=== PATIENT | female | born 1940 | race African-American/Black ===

== ENCOUNTER 2023-01-22 10:55 | Inpatient (IN) | payer MEDICARE, MEDICAID ==
[~2023-01-22] VITALS: Ht 157.5 cm; Wt 58.6 kg
[2023-01-22 12:29] LABS: Basophils # (auto) 0 10 ^3/uL (0-0.2); Eosinophils # (auto) 0.1 10 ^3/uL (0-0.8); Hemoglobin 10.5 g/dL (12.2-16.2); Lymphocytes % (auto) 6.1 % (10.0-50.0); Nucleated Red Blood Cells % 0.1 %
[2023-01-22 12:31] LABS: Basophils % (auto) 0.3 % (0.0-2.0); Hematocrit 33.8 % (36.0-46.0); Lymphocytes # (auto) 0.7 10 ^3/uL (0.4-5.4); Mean Corpuscular Hemoglobin 23.7 pg (28.0-32.0); Mean Corpuscular Hgb Conc. 31.2 g/dL (32.0-36.0); Monocytes # (auto) 0.8 10 ^3/uL (0-1.3); Monocytes % (auto) 7.2 % (0.0-12.0); Neutrophils # (auto) 9.2 10 ^3/uL (1.6-8.6); Neutrophils % (auto) 85.4 % (37.0-80.0); Red Blood Cells 4.44 10^6/uL (4.0-5.20); White Blood Cell 10.8 10^3/uL (4.4-10.8)
[2023-01-22 12:33] LABS: Red Cell Distribution Width 21.9 % (11.8-14.3)
[2023-01-22 12:35] LABS: Albumin 2.4 g/dL (3.4-5.0); Calcium 8.5 mg/dL (8.5-10.1); Potassium 3.9 mmol/L (3.5-5.1)
[2023-01-22 12:38] LABS: BUN/Creatinine Ratio 14.7 (10.0-20.0); Bilirubin, Total 0.6 mg/dL (0.2-1.0); INR 1.04 (0.9-1.15); Total Protein 5.8 g/dL (6.4-8.2)
[2023-01-22] MEDS ORDERED: ALBUTEROL SULF 2.5 MG/0.5ML(0.5%) NEB SOLN NEB ONE (15:15)
[2023-01-22] MEDS ORDERED: ASPirin 325 MG TAB PO ONE (15:15)
[2023-01-22] MEDS ORDERED: IPRATROPIUM BROM 0.5 MG/2.5ML INH SOL NEB ONE (15:15)
[2023-01-22] MEDS ORDERED: DexAMETHasone SOD PHOS 10MG/1ML VIAL INJ IV ONE (15:15)
[2023-01-22] MEDS: MAGNESIUM SULFATE 1GM/100ML 100 ML IV SCH ×2 (15:38→23:59)
[2023-01-22] MEDS ORDERED: VANCOMYCIN 1GM/250ML 250 ML IV ONE (16:00)
[2023-01-22] MEDS ORDERED: CEFEPIME 1GM/ 50ML 50 ML IV ONE (16:00)
[2023-01-22] MEDS ORDERED: SODIUM CHLORIDE 0.9% 250 ML IV ONE (16:00)
[2023-01-22] MEDS ORDERED: ACETAMINOPHEN 325 MG TAB PO PRN (16:15)
[2023-01-22] MEDS ORDERED: ALBUTEROL SULF 2.5 MG/0.5ML(0.5%) NEB SOLN NEB PRN (16:15)
[2023-01-22] MEDS ORDERED: NITROGLYCERIN 0.4 MG SL TAB SL PRN (16:15)
[2023-01-22] MEDS ORDERED: FUROSEMIDE 20 MG/2 ML VIAL IV ONE (16:15)
[2023-01-22] MEDS ORDERED: MORPHINE SULFATE INJ 2 MG/ml SYRG IV PRN (16:15)
[2023-01-22 16:39] LABS: Urine Bacteria NONE SEEN /hpf (None Seen); Urine Blood Negative /uL (Negative); Urine Mucus FEW (None Seen); Urine WBC 1 /hpf (0 - 5)
[2023-01-22 16:57] LABS: Urine Specific Gravity > 1.050 (1.001-1.035)
[2023-01-22] MEDS ORDERED: VANCOMYCIN PER PHARMACY 0 MG IV SCH (17:00)
[2023-01-22 17:14] VITALS: BP 136/59
[2023-01-22] MEDS ORDERED: cefTRIAXone 1GM/50ML D5W 50 ML IV SCH (18:00)
[2023-01-22] MEDS: ALBUTEROL SULF 2.5 MG/0.5ML(0.5%) NEB SOLN NEB SCH ×2 (18:21→22:17)
[2023-01-22] MEDS: IPRATROPIUM BROM 0.5 MG/2.5ML INH SOL NEB SCH ×2 (18:21→22:17)
[2023-01-22] MEDS: AZITHROMYCIN 500MG/ 250ML 250 ML IV SCH (21:02)
[2023-01-22] MEDS ORDERED: MAGNESIUM SULFATE 1GM/100ML 100 ML IV ONE (23:44)
[2023-01-22] MEDS: methylPREDNISolone SOD SUCC 125 MG/2 ML VL IV SCH (23:59)
[2023-01-23] MEDS: IPRATROPIUM BROM 0.5 MG/2.5ML INH SOL NEB SCH ×6 (02:15→22:01)
[2023-01-23] MEDS: ALBUTEROL SULF 2.5 MG/0.5ML(0.5%) NEB SOLN NEB SCH ×6 (02:15→22:01)
[2023-01-23 05:42] LABS: Basophils # (auto) 0 10 ^3/uL (0-0.2); Basophils % (auto) 0.2 % (0.0-2.0); Eosinophils # (auto) 0 10 ^3/uL (0-0.8); Lymphocytes # (auto) 0.6 10 ^3/uL (0.4-5.4); Monocytes # (auto) 0.1 10 ^3/uL (0-1.3); Nucleated Red Blood Cells % 0.2 %
[2023-01-23 05:46] LABS: Hematocrit 32.3 % (36.0-46.0); Mean Corpuscular Hemoglobin 23.6 pg (28.0-32.0); Mean Corpuscular Hgb Conc. 31.1 g/dL (32.0-36.0); Mean Corpuscular Volume 76.1 fL (80.0-100.0); Monocytes % (auto) 1.5 % (0.0-12.0); Neutrophils # (auto) 7.3 10 ^3/uL (1.6-8.6); Neutrophils % (auto) 91.3 % (37.0-80.0); Red Blood Cells 4.24 10^6/uL (4.0-5.20); Red Cell Distribution Width 21.2 % (11.8-14.3)
[2023-01-23 05:52] LABS: Albumin 2.1 g/dL (3.4-5.0); BUN/Creatinine Ratio 18.1 (10.0-20.0); Calcium 8.5 mg/dL (8.5-10.1)
[2023-01-23 05:55] LABS: Bilirubin, Total 0.3 mg/dL (0.2-1.0); Total Protein 6.3 g/dL (6.4-8.2)
[2023-01-23] MEDS: ENOXAPARIN SOD 40 MG/0.4 ML SYRINGE SC SCH (10:41)
[2023-01-23] MEDS: methylPREDNISolone SOD SUCC 125 MG/2 ML VL IV SCH ×2 (10:41→23:06)
[2023-01-23] MEDS: AZITHROMYCIN 500MG/ 250ML 250 ML IV SCH (10:41)
[2023-01-23] MEDS: ASPirin 81 mg TAB PO SCH (10:41)
[2023-01-23] MEDS: FUROSEMIDE 20 MG/2 ML VIAL IV SCH (10:42)
[2023-01-23] MEDS: VANCOMYCIN 750mg/250ml 250 ML IV SCH (18:21)
[2023-01-24 00:17] VITALS: BP 135/53
[2023-01-24] MEDS: ALBUTEROL SULF 2.5 MG/0.5ML(0.5%) NEB SOLN NEB SCH ×6 (01:50→22:20)
[2023-01-24] MEDS: IPRATROPIUM BROM 0.5 MG/2.5ML INH SOL NEB SCH ×6 (01:50→22:20)
[2023-01-24 05:15] VITALS: BP 129/61
[2023-01-24 07:57] LABS: Basophils # (auto) 0 10 ^3/uL (0-0.2); Eosinophils # (auto) 0 10 ^3/uL (0-0.8); Monocytes # (auto) 0.3 10 ^3/uL (0-1.3); Red Blood Cells 4.05 10^6/uL (4.0-5.20); White Blood Cell 13.8 10^3/uL (4.4-10.8)
[2023-01-24 08:01] LABS: Basophils % (auto) 0.2 % (0.0-2.0); Hematocrit 29.9 % (36.0-46.0); Hemoglobin 9.8 g/dL (12.2-16.2); Lymphocytes # (auto) 0.7 10 ^3/uL (0.4-5.4); Lymphocytes % (auto) 4.8 % (10.0-50.0); Mean Corpuscular Hemoglobin 24.1 pg (28.0-32.0); Mean Corpuscular Hgb Conc. 32.6 g/dL (32.0-36.0); Mean Corpuscular Volume 73.8 fL (80.0-100.0); Neutrophils # (auto) 12.8 10 ^3/uL (1.6-8.6); Nucleated Red Blood Cells % 0.1 %
[2023-01-24 08:11] LABS: Red Cell Distribution Width 21.1 % (11.8-14.3)
[2023-01-24 09:00] VITALS: BP 122/74
[2023-01-24 09:08] LABS: BUN/Creatinine Ratio 35.2 (10.0-20.0); Calcium 8.8 mg/dL (8.5-10.1)
[2023-01-24 09:18] LABS: Potassium 3.2 mmol/L (3.5-5.1)
[2023-01-24] MEDS: AZITHROMYCIN 500MG/ 250ML 250 ML IV SCH (10:31)
[2023-01-24] MEDS: methylPREDNISolone SOD SUCC 125 MG/2 ML VL IV SCH ×2 (10:33→22:02)
[2023-01-24] MEDS: FUROSEMIDE 20 MG/2 ML VIAL IV SCH (10:33)
[2023-01-24] MEDS: ENOXAPARIN SOD 40 MG/0.4 ML SYRINGE SC SCH (10:34)
[2023-01-24] MEDS: ASPirin 81 mg TAB PO SCH (10:35)
[2023-01-24 13:00] VITALS: BP 115/61
[2023-01-24 17:00] VITALS: BP 131/60
[2023-01-24 22:00] VITALS: BP 140/55
[2023-01-24] MEDS: VANCOMYCIN 750mg/250ml 250 ML IV SCH (22:03)
[2023-01-25] MEDS: ALBUTEROL SULF 2.5 MG/0.5ML(0.5%) NEB SOLN NEB SCH ×4 (02:29→13:29)
[2023-01-25] MEDS: IPRATROPIUM BROM 0.5 MG/2.5ML INH SOL NEB SCH ×4 (02:29→13:29)
[2023-01-25 05:00] VITALS: BP 121/45
[2023-01-25 06:56] LABS: Basophils # (auto) 0 10 ^3/uL (0-0.2); Eosinophils # (auto) 0 10 ^3/uL (0-0.8); Hemoglobin 10.4 g/dL (12.2-16.2); Monocytes # (auto) 0.4 10 ^3/uL (0-1.3)
[2023-01-25 06:58] LABS: Basophils % (auto) 0.3 % (0.0-2.0); Hematocrit 33.2 % (36.0-46.0); Lymphocytes # (auto) 0.7 10 ^3/uL (0.4-5.4); Lymphocytes % (auto) 5.4 % (10.0-50.0); Mean Corpuscular Hemoglobin 23.1 pg (28.0-32.0); Mean Corpuscular Hgb Conc. 31.2 g/dL (32.0-36.0); Mean Corpuscular Volume 74.1 fL (80.0-100.0); Monocytes % (auto) 2.8 % (0.0-12.0); Neutrophils # (auto) 11.4 10 ^3/uL (1.6-8.6); Neutrophils % (auto) 91.5 % (37.0-80.0); Nucleated Red Blood Cells % 0.1 %; Red Blood Cells 4.49 10^6/uL (4.0-5.20); White Blood Cell 12.4 10^3/uL (4.4-10.8)
[2023-01-25 07:07] LABS: Red Cell Distribution Width 21.3 % (11.8-14.3)
[2023-01-25 07:28] LABS: BUN/Creatinine Ratio 35.4 (10.0-20.0); Calcium 9.1 mg/dL (8.5-10.1)
[2023-01-25 09:00] VITALS: BP 130/80
[2023-01-25] MEDS: AZITHROMYCIN 500MG/ 250ML 250 ML IV SCH (10:17)
[2023-01-25] MEDS: FUROSEMIDE 20 MG/2 ML VIAL IV SCH (10:18)
[2023-01-25] MEDS: ENOXAPARIN SOD 40 MG/0.4 ML SYRINGE SC SCH (10:18)
[2023-01-25] MEDS: ASPirin 81 mg TAB PO SCH (10:19)
[2023-01-25] MEDS: methylPREDNISolone SOD SUCC 125 MG/2 ML VL IV SCH (10:19)
[2023-01-25] MEDS ORDERED: ASPI-325 PO (12:12)
[2023-01-25] MEDS ORDERED: FURO1TAB33 PO (12:12)
[2023-01-25] MEDS ORDERED: LEVO750T64 PO (12:12)
[2023-01-25] MEDS ORDERED: PRED20TA2 PO (12:12)
[2023-01-25 13:00] VITALS: BP 136/64
[2023-01-25] MEDS ORDERED: POTASSIUM EFFERVESENT TAB 25 MEQ PO ONE (14:00)
== END 2023-01-25 17:45 | disposition home or self-care (01) | DRG 193 ==
LOC: ER 10:55 → EDBD 10:55 → TELE 16:18 → TELE-WESTW 01-23 22:02
PROVIDERS: ADMIT Nurse Practitioner Family; ATTEND Internal Medicine Pulmonary Disease
DX: J18.9 Pneumonia, unspecified organism (principal); J96.21 Acute and chronic respiratory failure with hypoxia; E46 Unspecified protein-calorie malnutrition; I50.9 Heart failure, unspecified; J43.9 Emphysema, unspecified; Z20.822 Contact with and (suspected) exposure to COVID-19; Z88.1 Allergy status to other antibiotic agents; Z85.3 Personal history of malignant neoplasm of breast; Z90.12 Acquired absence of left breast and nipple; Z88.2 Allergy status to sulfonamides; Z88.8 Allergy status to other drugs, medicaments and biological substances; Z68.23 Body mass index [BMI] 23.0-23.9, adult
CPT/HCPCS: 36415; 71045; 71275; 80048; 80053; 81001; 83605; 83880; 84484; 85025; 85610; 85730; 87040; 87081; 87086; 87426; 93005; 93306; 94640; 94644; 96365; 96375; 99291; G0378; J1100

== ENCOUNTER 2023-11-05 17:11 | Inpatient (IN) | payer OTHER, MEDICAID ==
[~2023-11-05] VITALS: Ht 165.1 cm; Wt 70.2 kg
[~2023-11-05 17:11] MED LIST: ASPI-325 PO; FURO1TAB33 PO; LEVO750T40 PO; PRED20TA2 PO
[2023-11-05] MEDS ORDERED: methylPREDNISolone SOD SUCC 125 MG/2 ML VL IV ONE (18:00)
[2023-11-05] MEDS ORDERED: IPRATROPIUM BROM 0.5 MG/2.5ML INH SOL NEB ONE (18:00)
[2023-11-05] MEDS ORDERED: ALBUTEROL SULF 2.5 MG/0.5ML(0.5%) NEB SOLN NEB ONE (18:00)
[2023-11-05 18:48] LABS: Basophils % (auto) 0.3 % (0.0-2.0); Eosinophils # (auto) 0.2 10 ^3/uL (0-0.8); Lymphocytes # (auto) 2.7 10 ^3/uL (0.4-5.4); Mean Corpuscular Hgb Conc. 30.6 g/dL (32.0-36.0); Monocytes # (auto) 1.8 10 ^3/uL (0-1.3)
[2023-11-05 18:49] LABS: Basophils # (auto) 0.1 10 ^3/uL (0-0.2); Eosinophils % (auto) 0.8 % (0.0-7.0); Hematocrit 34.7 % (36.0-46.0); Hemoglobin 10.6 g/dL (12.2-16.2); Mean Corpuscular Hemoglobin 23.6 pg (28.0-32.0); Mean Corpuscular Volume 77.1 fL (80.0-100.0); Monocytes % (auto) 9.3 % (0.0-12.0); Neutrophils # (auto) 14.5 10 ^3/uL (1.6-8.6); Neutrophils % (auto) 75.6 % (37.0-80.0); Nucleated Red Blood Cells % 0.1 %; Red Blood Cells 4.51 10^6/uL (4.0-5.20); White Blood Cell 19.2 10^3/uL (4.4-10.8)
[2023-11-05 18:53] LABS: Red Cell Distribution Width 21.9 % (11.8-14.3)
[2023-11-05 19:11] LABS: Alanine Aminotransferase 27 U/L (7-40); Albumin 4.3 g/dL (3.2-4.8); Alkaline Phosphatase 104 U/L (46-116); Anion Gap 7 (5-15); Aspartate Aminotransferase 20 U/L (13-40); BUN/Creatinine Ratio 18.5 (10.0-20.0); Blood Urea Nitrogen 15 mg/dL (9-23); Calcium 9.3 mg/dL (8.5-10.1); Carbon Dioxide 30 mmol/L (20-30); Chloride 106 mmol/L (98-107); Glucose 89 mg/dL (74-106); Potassium 3.3 mmol/L (3.5-5.1); Sodium 143 mmol/L (136-145)
[2023-11-05 19:12] LABS: Bilirubin, Total 0.3 mg/dL (0.2-1.0); Total Protein 6.5 g/dL (5.7-8.2)
[2023-11-05] MEDS ORDERED: FUROSEMIDE 40 MG/4 ML VIAL IV ONE (19:45)
[2023-11-05] MEDS ORDERED: cefTRIAXone 1GM/50ML D5W 50 ML IV ONE (19:45)
[2023-11-05] MEDS ORDERED: ASPirin 325 MG TAB PO ONE (20:00)
[2023-11-05] MEDS ORDERED: AZITHROMYCIN 500MG/ 250ML 250 ML IV ONE ×2 (20:45→22:30)
[2023-11-05] MEDS ORDERED: POTASSIUM CHL 20 Meq TABLET PO ONE (20:45)
[2023-11-05] MEDS ORDERED: NITROGLYCERIN 0.4 MG SL TAB SL PRN (20:45)
[2023-11-05] MEDS ORDERED: MORPHINE SULFATE INJ 2 MG/ml SYRG IV PRN (20:45)
[2023-11-05 21:06] VITALS: BP 166/78; PULSE 75; RESP 20; TEMP 99.2; O2SAT 96
[2023-11-05 21:49] LABS: Urine Epithelial Cast None Seen /hpf (<5)
[2023-11-05 21:56] LABS: Urine Bacteria FEW /hpf (None Seen); Urine Blood Negative /uL (Negative); Urine Clarity HAZY (Clear); Urine Color Yellow (Yellow); Urine Mucus FEW (None Seen); Urine Protein, UAD 1+ (Negative); Urine Specific Gravity 1.019 (1.001-1.035); Urine Urobilinogen Normal (Negative); Urine WBC 7 /hpf (0 - 5)
[2023-11-05] MEDS: ATORVASTATIN 20 MG TAB PO SCH (22:11)
[2023-11-05] MEDS: GABAPENTIN 300 MG CAP PO SCH (22:11)
[2023-11-05] MEDS: DOXYCYCLINE 100MG/250ML 250 ML IV SCH (23:52)
[2023-11-05 23:57] VITALS: PULSE 83; RESP 18; O2SAT 95
[2023-11-05] MEDS: ALBUTEROL SULF 2.5 MG/0.5ML(0.5%) NEB SOLN NEB PRN (23:57)
[2023-11-05] MEDS: IPRATROPIUM BROM 0.5 MG/2.5ML INH SOL NEB PRN (23:57)
[2023-11-06] VITALS (11 sets, daily range): BP systolic 118–173; BP diastolic 59–83; PULSE 73–90; RESP 16–22; TEMP 98–99.1; O2SAT 93–99
[2023-11-06 01:52] LABS: COVID19 ANTIGEN SOFIA FIA NEGATIVE (NEGATIVE); Rapid Influenza A Negative (Negative); Rapid Influenza B Negative (Negative)
[2023-11-06 04:56] LABS: Basophils # (auto) 0 10 ^3/uL (0-0.2); Eosinophils # (auto) 0 10 ^3/uL (0-0.8); Lymphocytes # (auto) 0.9 10 ^3/uL (0.4-5.4); Mean Corpuscular Volume 77.5 fL (80.0-100.0)
[2023-11-06 04:59] LABS: Basophils % (auto) 0.2 % (0.0-2.0); Eosinophils % (auto) 0.1 % (0.0-7.0); Hematocrit 34.3 % (36.0-46.0); Hemoglobin 10.5 g/dL (12.2-16.2); Mean Corpuscular Hemoglobin 23.8 pg (28.0-32.0); Mean Corpuscular Hgb Conc. 30.7 g/dL (32.0-36.0); Monocytes # (auto) 0.3 10 ^3/uL (0-1.3); Monocytes % (auto) 1.4 % (0.0-12.0); Neutrophils # (auto) 16.8 10 ^3/uL (1.6-8.6); Neutrophils % (auto) 93.3 % (37.0-80.0); Red Blood Cells 4.43 10^6/uL (4.0-5.20)
[2023-11-06 05:02] LABS: Calcium 8.7 mg/dL (8.7-10.4); Chloride 104 mmol/L (98-107); Potassium 3.9 mmol/L (3.5-5.1); Sodium 140 mmol/L (136-145)
[2023-11-06 05:03] LABS: Anion Gap 10 (5-15); Carbon Dioxide 26 mmol/L (20-30)
[2023-11-06 05:06] LABS: Red Cell Distribution Width 21.4 % (11.8-14.3)
[2023-11-06 05:08] LABS: BUN/Creatinine Ratio 13.3 (10.0-20.0); Blood Urea Nitrogen 13 mg/dL (9-23); Glucose 256 mg/dL (74-106)
[2023-11-06] MEDS: LEVOTHYROXINE SODIUM 112 MCG TAB PO SCH (06:58)
[2023-11-06] MEDS ORDERED: AZITHROMYCIN 500MG/ 250ML 250 ML IV SCH ×2 (10:00)
[2023-11-06] MEDS: ASPirin 81 mg TAB PO SCH (10:46)
[2023-11-06] MEDS: dilTIAZem 120MG ER CAP PO SCH (10:47)
[2023-11-06] MEDS: GABAPENTIN 300 MG CAP PO SCH ×2 (10:47→21:19)
[2023-11-06] MEDS: methylPREDNISolone SOD SUCC 40 MG/ML VL IV SCH ×2 (10:47→21:18)
[2023-11-06] MEDS: FUROSEMIDE 40 MG TAB PO SCH (10:47)
[2023-11-06] MEDS: DOXYCYCLINE 100MG/250ML 250 ML IV SCH ×2 (10:48→23:00)
[2023-11-06] MEDS: ENOXAPARIN SOD 40 MG/0.4 ML SYRINGE SC SCH (10:48)
[2023-11-06] MEDS: ACETAMINOPHEN 325 MG TAB PO PRN ×2 (13:57→21:18)
[2023-11-06] MEDS: ALBUTEROL SULF 2.5 MG/0.5ML(0.5%) NEB SOLN NEB PRN ×2 (16:50→22:11)
[2023-11-06] MEDS: IPRATROPIUM BROM 0.5 MG/2.5ML INH SOL NEB PRN ×2 (16:50→22:11)
[2023-11-06] MEDS: ATORVASTATIN 20 MG TAB PO SCH (21:19)
[2023-11-06] MEDS: TEMAZEPAM 15 MG CAP PO PRN (22:58)
[2023-11-07] VITALS (12 sets, daily range): BP systolic 118–182; BP diastolic 55–76; PULSE 67–86; RESP 16–20; TEMP 97.7–98.5; O2SAT 90–99
[2023-11-07] MEDS: LEVOTHYROXINE SODIUM 112 MCG TAB PO SCH (06:05)
[2023-11-07] MEDS: ASPirin 81 mg TAB PO SCH (09:33)
[2023-11-07] MEDS: GABAPENTIN 300 MG CAP PO SCH ×2 (09:33→21:38)
[2023-11-07] MEDS: methylPREDNISolone SOD SUCC 40 MG/ML VL IV SCH ×2 (09:33→21:40)
[2023-11-07] MEDS: FUROSEMIDE 40 MG TAB PO SCH (09:34)
[2023-11-07] MEDS: ENOXAPARIN SOD 40 MG/0.4 ML SYRINGE SC SCH (09:34)
[2023-11-07] MEDS: dilTIAZem 120MG ER CAP PO SCH (09:35)
[2023-11-07] MEDS: DOXYCYCLINE 100MG/250ML 250 ML IV SCH ×2 (10:30→21:38)
[2023-11-07 11:14] LABS: Base Excess 1.6 mmol/L (-2.0-2.0)
[2023-11-07 14:45] LABS: Basophils # (auto) 0 10 ^3/uL (0-0.2); Eosinophils # (auto) 0 10 ^3/uL (0-0.8); Hemoglobin 10.2 g/dL (12.2-16.2); Monocytes # (auto) 0.7 10 ^3/uL (0-1.3); Monocytes % (auto) 3.5 % (0.0-12.0)
[2023-11-07 14:46] LABS: Basophils % (auto) 0.1 % (0.0-2.0); Hematocrit 34.1 % (36.0-46.0); Lymphocytes # (auto) 0.7 10 ^3/uL (0.4-5.4); Lymphocytes % (auto) 3.4 % (10.0-50.0); Mean Corpuscular Hemoglobin 23.7 pg (28.0-32.0); Mean Corpuscular Volume 79.1 fL (80.0-100.0); Neutrophils # (auto) 18.6 10 ^3/uL (1.6-8.6); Nucleated Red Blood Cells % 0.2 %; Red Blood Cells 4.31 10^6/uL (4.0-5.20)
[2023-11-07 14:53] LABS: Red Cell Distribution Width 21.8 % (11.8-14.3)
[2023-11-07] MEDS ORDERED: ATOR40TA52 PO (15:27)
[2023-11-07] MEDS ORDERED: HYDR-4798 PO (15:27)
[2023-11-07] MEDS ORDERED: MIRT-94 PO (15:27)
[2023-11-07] MEDS ORDERED: DILT60TA PO (15:27)
[2023-11-07] MEDS ORDERED: TRI05TP TOP (15:27)
[2023-11-07] MEDS ORDERED: LEVO112T4 PO (15:27)
[2023-11-07] MEDS ORDERED: FLUT1AER17 INH (15:27)
[2023-11-07] MEDS ORDERED: IBUP-1456 PO (15:27)
[2023-11-07] MEDS ORDERED: PANT40TA2 PO (15:27)
[2023-11-07] MEDS ORDERED: GABA-1250 PO (15:27)
[2023-11-07] MEDS ORDERED: MEMA1TAB3 PO (15:27)
[2023-11-07] MEDS ORDERED: cefTRIAXone 1GM/50ML D5W 50 ML IV ONE (15:30)
[2023-11-07] MEDS: ALBUTEROL SULF 2.5 MG/0.5ML(0.5%) NEB SOLN NEB PRN (16:55)
[2023-11-07] MEDS: IPRATROPIUM BROM 0.5 MG/2.5ML INH SOL NEB PRN (16:55)
[2023-11-07] MEDS: TEMAZEPAM 15 MG CAP PO PRN (21:38)
[2023-11-07] MEDS: ATORVASTATIN 20 MG TAB PO SCH (21:38)
[2023-11-07] MEDS: ACETAMINOPHEN 325 MG TAB PO PRN (21:39)
[2023-11-08] VITALS (9 sets, daily range): BP systolic 136–158; BP diastolic 64–71; PULSE 68–84; RESP 15–24; TEMP 98–98.8; O2SAT 90–100
[2023-11-08] MEDS: LEVOTHYROXINE SODIUM 112 MCG TAB PO SCH (06:38)
[2023-11-08] MEDS: ENOXAPARIN SOD 40 MG/0.4 ML SYRINGE SC SCH (10:04)
[2023-11-08] MEDS: GABAPENTIN 300 MG CAP PO SCH ×2 (10:05→21:58)
[2023-11-08] MEDS: ASPirin 81 mg TAB PO SCH (10:05)
[2023-11-08] MEDS: dilTIAZem 120MG ER CAP PO SCH (10:05)
[2023-11-08] MEDS: FUROSEMIDE 40 MG TAB PO SCH (10:05)
[2023-11-08] MEDS: DOXYCYCLINE 100MG/250ML 250 ML IV SCH ×2 (10:30→22:14)
[2023-11-08] MEDS: IPRATROPIUM BROM 0.5 MG/2.5ML INH SOL NEB PRN (11:19)
[2023-11-08] MEDS: ALBUTEROL SULF 2.5 MG/0.5ML(0.5%) NEB SOLN NEB PRN (11:19)
[2023-11-08] MEDS: cefTRIAXone 1GM/50ML D5W 50 ML IV SCH (15:18)
[2023-11-08] MEDS: methylPREDNISolone SOD SUCC 40 MG/ML VL IV SCH ×2 (15:19→21:58)
[2023-11-08] MEDS ORDERED: IOHEXOL 350 MG/ML 100ML IJ ONE ×2 (15:28→15:31)
[2023-11-08] MEDS: TEMAZEPAM 15 MG CAP PO PRN (21:58)
[2023-11-08] MEDS: ATORVASTATIN 20 MG TAB PO SCH (21:58)
[2023-11-08] MEDS: ACETAMINOPHEN 325 MG TAB PO PRN (21:58)
[2023-11-09] VITALS (10 sets, daily range): BP systolic 129–161; BP diastolic 59–101; PULSE 58–125; RESP 16–20; TEMP 97.6–98.7; O2SAT 94–100
[2023-11-09] MEDS: LEVOTHYROXINE SODIUM 112 MCG TAB PO SCH (06:48)
[2023-11-09] MEDS: DOXYCYCLINE 100MG/250ML 250 ML IV SCH ×2 (09:28→22:24)
[2023-11-09] MEDS: cefTRIAXone 1GM/50ML D5W 50 ML IV SCH (09:28)
[2023-11-09] MEDS: ENOXAPARIN SOD 40 MG/0.4 ML SYRINGE SC SCH (09:29)
[2023-11-09] MEDS: ASPirin 81 mg TAB PO SCH (09:29)
[2023-11-09] MEDS: methylPREDNISolone SOD SUCC 40 MG/ML VL IV SCH ×2 (09:29→22:24)
[2023-11-09] MEDS: FUROSEMIDE 40 MG TAB PO SCH (09:30)
[2023-11-09] MEDS: GABAPENTIN 300 MG CAP PO SCH ×2 (09:30→22:24)
[2023-11-09] MEDS: dilTIAZem 120MG ER CAP PO SCH (09:30)
[2023-11-09] MEDS ORDERED: HEPARIN DRIP/D5W 100UNITS/ML 250 ML IV SCH ×3 (16:45→23:45)
[2023-11-09] MEDS ORDERED: HEPARIN SODIUM (PORCINE) 5000 UNITS/ML 1ML VIAL IV ONE (17:15)
[2023-11-09 18:30] LABS: INR 1.07 (0.9-1.15); Prothrombin Time 11.2 sec (9.3-11.8)
[2023-11-09 18:32] LABS: Partial Thromboplastin Time > 139.0 SEC (24.5-34.5)
[2023-11-09] MEDS: ATORVASTATIN 20 MG TAB PO SCH (22:24)
[2023-11-09] MEDS: ACETAMINOPHEN 325 MG TAB PO PRN (22:42)
[2023-11-10] VITALS (15 sets, daily range): BP systolic 139–172; BP diastolic 68–97; PULSE 60–92; RESP 16–24; TEMP 97.4–98.7; O2SAT 94–100
[2023-11-10 06:03] LABS: Eosinophils # (auto) 0 10 ^3/uL (0-0.8); Hematocrit 36.3 % (36.0-46.0)
[2023-11-10 06:06] LABS: Basophils # (auto) 0.1 10 ^3/uL (0-0.2); Basophils % (auto) 0.3 % (0.0-2.0); Hemoglobin 11.1 g/dL (12.2-16.2); Lymphocytes # (auto) 1.7 10 ^3/uL (0.4-5.4); Lymphocytes % (auto) 11.2 % (10.0-50.0); Mean Corpuscular Hemoglobin 23.9 pg (28.0-32.0); Mean Corpuscular Hgb Conc. 30.7 g/dL (32.0-36.0); Mean Corpuscular Volume 77.8 fL (80.0-100.0); Monocytes # (auto) 1.6 10 ^3/uL (0-1.3); Monocytes % (auto) 10.3 % (0.0-12.0); Neutrophils # (auto) 12.1 10 ^3/uL (1.6-8.6); Neutrophils % (auto) 78.2 % (37.0-80.0); Nucleated Red Blood Cells % 0.2 %; Red Blood Cells 4.66 10^6/uL (4.0-5.20); White Blood Cell 15.5 10^3/uL (4.4-10.8)
[2023-11-10] MEDS: LEVOTHYROXINE SODIUM 112 MCG TAB PO SCH (06:09)
[2023-11-10 06:16] LABS: Red Cell Distribution Width 21.1 % (11.8-14.3)
[2023-11-10 06:26] LABS: Alanine Aminotransferase 61 U/L (7-40); Albumin 3.6 g/dL (3.2-4.8); Alkaline Phosphatase 74 U/L (46-116); Anion Gap 8 (5-15); Aspartate Aminotransferase 26 U/L (13-40); BUN/Creatinine Ratio 17.1 (10.0-20.0); Blood Urea Nitrogen 13 mg/dL (9-23); Calcium 8.6 mg/dL (8.7-10.4); Carbon Dioxide 29 mmol/L (20-30); Chloride 103 mmol/L (98-107); Glucose 163 mg/dL (74-106); Potassium 3.6 mmol/L (3.5-5.1); Sodium 140 mmol/L (136-145)
[2023-11-10 06:29] LABS: INR 1.13 (0.9-1.15); Prothrombin Time 11.8 sec (9.3-11.8)
[2023-11-10 06:36] LABS: Partial Thromboplastin Time 85.1 SEC (24.5-34.5)
[2023-11-10] MEDS: HEPARIN DRIP/D5W 100UNITS/ML 250 ML IV SCH ×2 (07:30→16:20)
[2023-11-10] MEDS: methylPREDNISolone SOD SUCC 40 MG/ML VL IV SCH ×2 (09:44→22:26)
[2023-11-10] MEDS: cefTRIAXone 1GM/50ML D5W 50 ML IV SCH (09:44)
[2023-11-10] MEDS: FUROSEMIDE 40 MG TAB PO SCH (09:45)
[2023-11-10] MEDS: ASPirin 81 mg TAB PO SCH (09:45)
[2023-11-10] MEDS: GABAPENTIN 300 MG CAP PO SCH ×2 (09:45→22:27)
[2023-11-10] MEDS: dilTIAZem 120MG ER CAP PO SCH (09:46)
[2023-11-10] MEDS: IPRATROPIUM BROM 0.5 MG/2.5ML INH SOL NEB PRN ×3 (10:40→18:50)
[2023-11-10] MEDS: ALBUTEROL SULF 2.5 MG/0.5ML(0.5%) NEB SOLN NEB PRN ×3 (10:40→18:49)
[2023-11-10 13:55] LABS: Alanine Aminotransferase 71 U/L (7-40); Albumin 3.9 g/dL (3.2-4.8); Alkaline Phosphatase 76 U/L (46-116); Anion Gap 7 (5-15); Aspartate Aminotransferase 34 U/L (13-40); BUN/Creatinine Ratio 22.7 (10.0-20.0); Blood Urea Nitrogen 22 mg/dL (9-23); Calcium 8.7 mg/dL (8.5-10.1); Carbon Dioxide 34 mmol/L (20-30); Chloride 103 mmol/L (98-107); Glucose 190 mg/dL (74-106); Sodium 144 mmol/L (136-145)
[2023-11-10 13:56] LABS: Bilirubin, Total 0.4 mg/dL (0.2-1.0); Total Protein 6.1 g/dL (5.7-8.2)
[2023-11-10 13:58] LABS: INR 1.06 (0.9-1.15); Partial Thromboplastin Time 59.7 SEC (24.5-34.5); Prothrombin Time 11.1 sec (9.3-11.8)
[2023-11-10] MEDS: DOXYCYCLINE 100MG/250ML 250 ML IV SCH ×2 (16:19→22:27)
[2023-11-10] MEDS: ATORVASTATIN 20 MG TAB PO SCH (22:27)
[2023-11-10] MEDS: ACETAMINOPHEN 325 MG TAB PO PRN (22:43)
[2023-11-11] VITALS (10 sets, daily range): BP systolic 104–161; BP diastolic 59–86; PULSE 67–95; RESP 16–22; TEMP 97.8–98.5; O2SAT 94–100
[2023-11-11] MEDS ORDERED: hydrALAZINE HCL 20 MG/ML VL IV ONE (00:45)
[2023-11-11] MEDS: IPRATROPIUM BROM 0.5 MG/2.5ML INH SOL NEB PRN (00:46)
[2023-11-11] MEDS: ALBUTEROL SULF 2.5 MG/0.5ML(0.5%) NEB SOLN NEB PRN (00:46)
[2023-11-11] MEDS ORDERED: FUROSEMIDE 20 MG/2 ML VIAL IV ONE (01:45)
[2023-11-11 02:13] LABS: INR 1.08 (0.9-1.15); Prothrombin Time 11.3 sec (9.3-11.8)
[2023-11-11 02:15] LABS: Partial Thromboplastin Time 93.5 SEC (24.5-34.5)
[2023-11-11] MEDS ORDERED: HEPARIN DRIP/D5W 100UNITS/ML 250 ML IV SCH (04:30)
[2023-11-11] MEDS: LEVOTHYROXINE SODIUM 112 MCG TAB PO SCH (05:54)
[2023-11-11] MEDS: ASPirin 81 mg TAB PO SCH (08:13)
[2023-11-11] MEDS: FUROSEMIDE 40 MG TAB PO SCH (08:13)
[2023-11-11] MEDS: GABAPENTIN 300 MG CAP PO SCH ×2 (08:13→21:16)
[2023-11-11] MEDS: dilTIAZem 120MG ER CAP PO SCH (08:13)
[2023-11-11] MEDS: methylPREDNISolone SOD SUCC 40 MG/ML VL IV SCH ×2 (08:14→21:14)
[2023-11-11] MEDS: cefTRIAXone 1GM/50ML D5W 50 ML IV SCH (08:14)
[2023-11-11] MEDS: DOXYCYCLINE 100 MG TAB/CAP PO SCH ×2 (09:49→21:16)
[2023-11-11 11:32] LABS: Basophils # (auto) 0 10 ^3/uL (0-0.2); Basophils % (auto) 0.2 % (0.0-2.0); Eosinophils # (auto) 0 10 ^3/uL (0-0.8); Hematocrit 38.6 % (36.0-46.0); Hemoglobin 11.9 g/dL (12.2-16.2); Lymphocytes # (auto) 0.9 10 ^3/uL (0.4-5.4); Lymphocytes % (auto) 4.8 % (10.0-50.0); Mean Corpuscular Hemoglobin 24.3 pg (28.0-32.0); Mean Corpuscular Hgb Conc. 30.8 g/dL (32.0-36.0); Mean Corpuscular Volume 78.9 fL (80.0-100.0); Monocytes # (auto) 0.9 10 ^3/uL (0-1.3); Monocytes % (auto) 5.2 % (0.0-12.0); Neutrophils # (auto) 15.9 10 ^3/uL (1.6-8.6); Neutrophils % (auto) 89.8 % (37.0-80.0); Nucleated Red Blood Cells % 0.2 %; White Blood Cell 17.8 10^3/uL (4.4-10.8)
[2023-11-11 11:33] LABS: Red Cell Distribution Width 21.3 % (11.8-14.3)
[2023-11-11 11:50] LABS: INR 1.09 (0.9-1.15); Partial Thromboplastin Time 53.2 SEC (24.5-34.5); Prothrombin Time 11.4 sec (9.3-11.8)
[2023-11-11 17:55] LABS: INR 1.05 (0.9-1.15)
[2023-11-11] MEDS: APIXABAN 5 MG TAB PO SCH (21:15)
[2023-11-11] MEDS: ATORVASTATIN 20 MG TAB PO SCH (21:16)
[2023-11-12] VITALS (10 sets, daily range): BP systolic 99–154; BP diastolic 58–79; PULSE 58–78; RESP 16–20; TEMP 97.8–98.2; O2SAT 95–99
[2023-11-12] MEDS: LEVOTHYROXINE SODIUM 112 MCG TAB PO SCH (06:06)
[2023-11-12] MEDS: cefTRIAXone 1GM/50ML D5W 50 ML IV SCH (08:50)
[2023-11-12] MEDS: ASPirin 81 mg TAB PO SCH (10:48)
[2023-11-12] MEDS: methylPREDNISolone SOD SUCC 40 MG/ML VL IV SCH (10:48)
[2023-11-12] MEDS: DOXYCYCLINE 100 MG TAB/CAP PO SCH (10:49)
[2023-11-12] MEDS: APIXABAN 5 MG TAB PO SCH ×2 (10:49→22:17)
[2023-11-12] MEDS: dilTIAZem 120MG ER CAP PO SCH (10:50)
[2023-11-12] MEDS: GABAPENTIN 300 MG CAP PO SCH ×2 (10:51→22:17)
[2023-11-12] MEDS: FUROSEMIDE 40 MG TAB PO SCH (10:51)
[2023-11-12] MEDS: ATORVASTATIN 20 MG TAB PO SCH (22:17)
[2023-11-12] MEDS: CEFPODOXIME PROXETIL 200 MG TAB PO SCH (22:19)
[2023-11-12] MEDS: ACETAMINOPHEN 325 MG TAB PO PRN (22:22)
[2023-11-13] VITALS (9 sets, daily range): BP systolic 137–171; BP diastolic 61–82; PULSE 57–76; RESP 19–20; TEMP 98.2–98.9; O2SAT 95–100
[2023-11-13] MEDS: LEVOTHYROXINE SODIUM 112 MCG TAB PO SCH (06:59)
[2023-11-13] MEDS: ASPirin 81 mg TAB PO SCH (11:15)
[2023-11-13] MEDS: APIXABAN 5 MG TAB PO SCH ×2 (11:15→22:15)
[2023-11-13] MEDS: GABAPENTIN 300 MG CAP PO SCH ×2 (11:15→22:15)
[2023-11-13] MEDS: predniSONE 20 MG TAB PO SCH (11:15)
[2023-11-13] MEDS: dilTIAZem 120MG ER CAP PO SCH (11:20)
[2023-11-13] MEDS: FUROSEMIDE 40 MG TAB PO SCH (11:20)
[2023-11-13] MEDS: CEFPODOXIME PROXETIL 200 MG TAB PO SCH ×2 (11:23→22:16)
[2023-11-13] MEDS ORDERED: HYDROcodone-ACET 5/325MG TAB PO PRN (15:15)
[2023-11-13] MEDS: ATORVASTATIN 20 MG TAB PO SCH (22:15)
[2023-11-13] MEDS ORDERED: hydrALAZINE HCL 20 MG/ML VL IV ONE (22:30)
[2023-11-14] VITALS (9 sets, daily range): BP systolic 121–127; BP diastolic 55–71; PULSE 54–80; RESP 16–20; TEMP 97.9–98.2; O2SAT 92–99
[2023-11-14] MEDS: LEVOTHYROXINE SODIUM 112 MCG TAB PO SCH (06:10)
[2023-11-14] MEDS: ASPirin 81 mg TAB PO SCH (10:48)
[2023-11-14] MEDS: dilTIAZem 120MG ER CAP PO SCH (10:49)
[2023-11-14] MEDS: FUROSEMIDE 40 MG TAB PO SCH (10:49)
[2023-11-14] MEDS: APIXABAN 5 MG TAB PO SCH ×2 (10:49→21:17)
[2023-11-14] MEDS: predniSONE 20 MG TAB PO SCH (10:49)
[2023-11-14] MEDS: GABAPENTIN 300 MG CAP PO SCH ×2 (10:49→21:17)
[2023-11-14] MEDS: CEFPODOXIME PROXETIL 200 MG TAB PO SCH ×2 (10:50→21:17)
[2023-11-14] MEDS: ATORVASTATIN 20 MG TAB PO SCH (21:17)
[2023-11-15 05:00] VITALS: BP 136/85; PULSE 60; RESP 19; TEMP 98; O2SAT 100
[2023-11-15] MEDS: LEVOTHYROXINE SODIUM 112 MCG TAB PO SCH (06:26)
[2023-11-15 06:46] VITALS: O2SAT 96; O2SAT 98
[2023-11-15 08:00] VITALS: PULSE 55; PULSE 56; RESP 18; O2SAT 96
[2023-11-15 09:00] VITALS: PULSE 55; RESP 21; TEMP 97.6; O2SAT 100
[2023-11-15] MEDS: predniSONE 20 MG TAB PO SCH (10:53)
[2023-11-15] MEDS: APIXABAN 5 MG TAB PO SCH (10:53)
[2023-11-15] MEDS: GABAPENTIN 300 MG CAP PO SCH (10:55)
[2023-11-15] MEDS: FUROSEMIDE 40 MG TAB PO SCH (10:55)
[2023-11-15] MEDS: dilTIAZem 120MG ER CAP PO SCH (10:55)
[2023-11-15] MEDS: CEFPODOXIME PROXETIL 200 MG TAB PO SCH (10:56)
[2023-11-15] MEDS: ASPirin 81 mg TAB PO SCH (10:56)
[2023-11-15] MEDS ORDERED: APIX5TAB PO (11:41)
[2023-11-15] MEDS ORDERED: PRED20TA2 PO (11:42)
[2023-11-15 13:00] VITALS: BP_SYST 135; BP_SYST 153; BP_DIAS 51; BP_DIAS 87; PULSE 100; RESP 19; RESP 21; TEMP 97.8; TEMP 97.9; O2SAT 100; O2SAT 98
[2023-11-15 15:25] VITALS: BP 135/51; PULSE 100; RESP 21; TEMP 97.9; O2SAT 98
[2023-11-18] MEDS ORDERED: APIXABAN 5 MG TAB PO SCH (22:00)
== END 2023-11-15 16:03 | disposition home or self-care (01) | DRG 871 ==
LOC: EDBD 17:11 → ER 17:11 → TELE 20:43 → TELE-WESTW 23:19
PROVIDERS: ADMIT Nurse Practitioner; ATTEND Family Medicine
PROC: 05H933Z Insertion of Infusion Device into Right Brachial Vein, Percutaneous Approach (ICD-10-PCS; principal; 2023-11-10)
PROC: B54MZZA Ultrasonography of Right Upper Extremity Veins, Guidance (ICD-10-PCS; 2023-11-10)
DX: A41.9 Sepsis, unspecified organism (principal); I26.99 Other pulmonary embolism without acute cor pulmonale; J18.9 Pneumonia, unspecified organism; J96.21 Acute and chronic respiratory failure with hypoxia; R65.21 Severe sepsis with septic shock; I24.89 Other forms of acute ischemic heart disease; N39.0 Urinary tract infection, site not specified; J44.1 Chronic obstructive pulmonary disease with (acute) exacerbation; J44.0 Chronic obstructive pulmonary disease with (acute) lower respiratory infection; I50.9 Heart failure, unspecified; I11.0 Hypertensive heart disease with heart failure; Z20.822 Contact with and (suspected) exposure to COVID-19; E87.6 Hypokalemia; E78.5 Hyperlipidemia, unspecified; I25.10 Atherosclerotic heart disease of native coronary artery without angina pectoris; Z88.1 Allergy status to other antibiotic agents; Z90.12 Acquired absence of left breast and nipple; Z98.61 Coronary angioplasty status; Z88.2 Allergy status to sulfonamides; Z88.8 Allergy status to other drugs, medicaments and biological substances; Z79.899 Other long term (current) drug therapy; Z87.891 Personal history of nicotine dependence
CPT/HCPCS: 36415; 36600; 71045; 71275; 80048; 80053; 81001; 82805; 83605; 83880; 84132; 84484; 85025; 85379; 85610; 85730; 87040; 87086; 87426; 87804; 93005; 93306; 93970; 94640; 96374; 96375; 99291; G0378; J3490

== ENCOUNTER 2024-03-27 20:05 | Emergency (ER) | payer OTHER, MEDICAID ==
[~2024-03-27] VITALS: Ht 162.6 cm; Wt 75.0 kg
[~2024-03-27 20:05] MED LIST changes: +APIX5TAB PO; +ATOR40TA52 PO; +DILT60TA PO; +FLUT1AER17 INH; +GABA-1250 PO; +HYDR-4798 PO; +IBUP-1456 PO; +LEVO112T4 PO; -LEVO750T40 PO; +MEMA1TAB3 PO; +MIRT-94 PO; +PANT40TA2 PO; +TRI05TP TOP
[2024-03-27 21:51] VITALS: BP 180/71; TEMP 97.8
[2024-03-27 21:54] VITALS: PULSE 74; RESP 22; O2SAT 97
== END 2024-03-27 23:21 | disposition home or self-care (01) ==
LOC: EDBD 20:05 → ER 20:05
DX: R04.0 Epistaxis (principal); J44.9 Chronic obstructive pulmonary disease, unspecified; I10 Essential (primary) hypertension; Z85.9 Personal history of malignant neoplasm, unspecified; Z88.1 Allergy status to other antibiotic agents; Z88.2 Allergy status to sulfonamides; Z88.8 Allergy status to other drugs, medicaments and biological substances; Z79.899 Other long term (current) drug therapy

== ENCOUNTER 2024-04-01 02:34 | Emergency (ER) | payer OTHER, MEDICAID ==
[~2024-04-01] VITALS: Ht 157.5 cm; Wt 71.3 kg
[2024-04-01] MEDS: hydrALAZINE HCL 10 MG TAB PO ONE ×2 (03:40→06:13)
[2024-04-01 05:42] VITALS: BP 185/112; RESP 18
[2024-04-01 06:46] VITALS: PULSE 78; O2SAT 91
[2024-04-01] MEDS: HYDROcodone-ACET 5/325MG TAB PO ONE (07:00)
== END 2024-04-01 07:16 | disposition home or self-care (01) ==
LOC: ER 02:34
DX: R04.0 Epistaxis (principal); J44.9 Chronic obstructive pulmonary disease, unspecified; I10 Essential (primary) hypertension; Z88.6 Allergy status to analgesic agent; Z88.1 Allergy status to other antibiotic agents; Z88.2 Allergy status to sulfonamides; Z88.8 Allergy status to other drugs, medicaments and biological substances; Z85.9 Personal history of malignant neoplasm, unspecified; Z86.718 Personal history of other venous thrombosis and embolism; Z79.899 Other long term (current) drug therapy
CPT/HCPCS: 30901; 93005